=== PATIENT | female | born 1975 | race Native Hawaiian/Other Pacific Islander ===

== ENCOUNTER 2023-05-28 10:48 | Emergency (ER) | payer MEDICAID, OTHER ==
[~2023-05-28] VITALS: Ht 170.2 cm; Wt 72.7 kg
[2023-05-28 11:38] LABS: Basophils # (auto) 0.1 10 ^3/uL (0-0.2); Basophils % (auto) 1.3 % (0.0-2.0); Eosinophils # (auto) 0.3 10 ^3/uL (0-0.8); Eosinophils % (auto) 6.1 % (0.0-7.0); Hematocrit 30.9 % (36.0-46.0); Hemoglobin 10.2 g/dL (12.2-16.2); Lymphocytes # (auto) 0.9 10 ^3/uL (0.4-5.4); Lymphocytes % (auto) 16.6 % (10.0-50.0); Mean Corpuscular Hemoglobin 29.3 pg (28.0-32.0); Mean Corpuscular Hgb Conc. 33.1 g/dL (32.0-36.0); Mean Corpuscular Volume 88.7 fL (80.0-100.0); Monocytes # (auto) 0.3 10 ^3/uL (0-1.3); Monocytes % (auto) 6.3 % (0.0-12.0); Neutrophils # (auto) 3.8 10 ^3/uL (1.6-8.6); Neutrophils % (auto) 69.7 % (37.0-80.0); Nucleated Red Blood Cells % 0.1 %; Red Blood Cells 3.48 10^6/uL (4.0-5.20); Red Cell Distribution Width 16.2 % (11.8-14.3); White Blood Cell 5.5 10^3/uL (4.4-10.8)
[2023-05-28 12:01] LABS: Alanine Aminotransferase 36 U/L (7-40); Alkaline Phosphatase 715 U/L (46-116); Anion Gap 10 (5-15); Aspartate Aminotransferase 44 U/L (13-40); BUN/Creatinine Ratio 16.7 (10.0-20.0); Blood Urea Nitrogen 22 mg/dL (9-23); Calcium 8.1 mg/dL (8.5-10.1); Carbon Dioxide 22 mmol/L (20-30); Chloride 108 mmol/L (98-107); Glucose 240 mg/dL (74-106); Potassium 3.6 mmol/L (3.5-5.1); Sodium 140 mmol/L (136-145)
[2023-05-28 12:02] LABS: Bilirubin, Total 0.6 mg/dL (0.2-1.0); Total Protein 6.2 g/dL (5.7-8.2)
[2023-05-28 13:02] LABS: Erythrocyte Sedimentation Rate 84 mm/hr (0-20)
[2023-05-28] MEDS ORDERED: IOHEXOL 300 MG/ML 100ML BOTTLE IJ ONE (13:37)
[2023-05-28] MEDS ORDERED: PIPERACILLIN-TAZOB 3.375GM 100 ML IV ONE (13:45)
[2023-05-28] MEDS ORDERED: VANCOMYCIN 1GM/200ML 250 ML IV ONE (13:45)
[2023-05-28 20:14] VITALS: PULSE 69; RESP 14; O2SAT 95
[2023-05-28] MEDS ORDERED: LABETALOL HCL 5 MG/ML 4ML SYRINGE IV ONE ×2 (20:15→21:00)
[2023-05-29] MEDS ORDERED: PIPERACILLIN-TAZOB 3.375GM 100 ML IV ONE ×2 (05:00→15:45)
[2023-05-29 05:35] VITALS: BP 184/99; PULSE 75; RESP 16; O2SAT 96
== END 2023-05-29 15:44 | disposition left against medical advice (07) ==
LOC: EDBD 10:48 → ER 10:48
DX: L03.116 Cellulitis of left lower limb (principal); L02.612 Cutaneous abscess of left foot; I10 Essential (primary) hypertension; E11.9 Type 2 diabetes mellitus without complications; J45.909 Unspecified asthma, uncomplicated
CPT/HCPCS: 36415; 73701; 80053; 83605; 85025; 85652; 86141; 87040; 96365; 96366; 96368; 96375; 99285; J2543; J3370; J3490; Q9967